=== PATIENT | female | born 1940 | race Caucasian/White ===

== ENCOUNTER → 2018-02-10 | Outpatient (CLI) | payer MEDICARE ==
[~2018-02-10] MED LIST: ALENDRONATE SOD70 MG PO; AMBIEN10 MG PO; ASPIRIN81 MG PO; ATORVASTATIN CA40 MG PO; CALTRATE 600 +1 EACH PO; CENTRUM SILVER1 EAC4 PO; HYDROCHLOROTHIA25 MG PO; METFORMIN HCL500 M2 PO; NASCOBAL2.3 ML; PREMARIN0.45 MG PO; QUINAPRIL HCL40 MG PO; VITAMIN B-12500 MCG PO; VITAMIN D35000 UNIT PO
--- NOTE | 2018-02-10 16:22 | Diagnostic Imaging Report ---
Left knee MRI without contrast. History: Knee pain. Decreased range of motion. Pain not responding to conservative management Comparison: None. Technique: Multiplanar multi-sequence MRI of the knee without contrast. Findings: Medial compartment: There is degeneration and fraying of the medial meniscus. No meniscal tear is seen. The medial compartmental articular cartilage surfaces are thinned with regions of fraying and fissuring. The medial collateral ligament complex is intact. Lateral compartment: There is a complex tear involving the anterior horn and body segment of the lateral meniscus. The lateral compartmental articular cartilage surfaces are thinned with regions of fraying and deep fissuring. There is underlying bone marrow edema. There are peripheral marginal osteophytes. The lateral collateral ligament complex is intact. Intercondylar notch: There is scarring and attenuation of the anterior cruciate ligament. The posterior cruciate ligament is intact. Patellofemoral compartment: There are regions of full-thickness articular cartilage loss in the patellofemoral compartment with underlying bone marrow edema Extensor mechanism: The quadriceps and patellar tendons are normal. Other findings: There is a joint effusion and synovitis. There is no acute fracture, subluxation or avascular necrosis. There is a small lobulated Bolden's cyst. 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 Regions of full-thickness articular cartilage loss in the patellofemoral compartment with underlying bone marrow edema. Mild degenerative arthrosis in the medial compartment of the knee. Joint effusion, synovitis and small Bolden's cyst. Signed by: Dr. Jamari Contreras M.D. on 02/10/2018 4:18 PM
== END ==
LOC: MRI 13:04
PROVIDERS: ATTEND Family Medicine
DX: M25.562 Pain in left knee (principal)

== ENCOUNTER → 2021-12-11 | Outpatient (CLI) | payer MEDICARE | LOC: US 15:40 | DX: M54.50 Low back pain, unspecified (principal) | CPT/HCPCS: 76770 ==